=== PATIENT | female | born 1955 | race Asian ===

== ENCOUNTER 2016-12-14 | Emergency (ER) | payer OTHER | END 2016-12-14 12:35 | disposition home or self-care (01) ==

== ENCOUNTER 2017-07-01 14:19 | Emergency (ER) | payer OTHER ==
[2017-07-01] MEDS ORDERED: IBUPROFEN 800 MG TABLET PO STA (15:03)
[2017-07-01] MEDS ORDERED: DEXAMETHASONE 10 MG/ML VIAL PO STA (15:03)
--- NOTE | 2017-07-01 15:07 | ED Physician Documentation ---
PD HPI URI - Stated complaint Stated Complaint: SWELLING IN EYES - Chief complaint Chief Complaint: Heent - History obtained from History obtained from: Patient, Family - History of Present Illness Timing - onset: How many weeks ago (2) Timing duration: Weeks (2) Timing details: Gradual onset Pain level max: 8 Pain level now: 8 Associated symptoms: Nasal congestion, Sinus pain (L > R). No: Fever, Chills, Sore throat, Swollen nodes, Dry cough, Productive cough, Hemoptysis, Chest pain , Dyspnea Contributing factors: Sick contact. No: Travel, Immunocompromised, Unimmunized Improves by: Other (tried a netti pot without relief) Worsened by: Other (bending over) Similar symptoms before: Diagnosis (sinusitis) Recently seen: Not recently seen Review of Systems Constitutional: denies: Fever, Chills Nose: reports: Congestion, Sinus pressure / pain. denies: Rhinorrhea / runny nose, Epistaxis Throat: denies: Sore throat Cardiac: denies: Chest pain / pressure Respiratory: denies: Cough GI: denies: Nausea, Vomiting, Diarrhea Skin: denies: Rash Musculoskeletal: denies: Neck pain, Back pain Neurologic: denies: Headache PD PAST MEDICAL HISTORY - Past Medical History Past Medical History: Yes Cardiovascular: Hypertension, High cholesterol, Murmur - Past Surgical History Past Surgical History: No - Present Medications Home Medications: Ambulatory Orders Medication Instructions Recorded Confirmed Aspirin [Children's Aspirin] 81 mg PO DAILY 07/10/15 07/01/17 Atenolol 100 mg PO DAILY 07/10/15 07/01/17 Simvastatin [Zocor] 40 mg PO DAILY 07/10/15 07/01/17 Telmisartan [Micardis] 40 mg PO DAILY 07/10/15 07/01/17 Amox/Clav 875/125 [Augmentin] 1 each PO Q12H #20 tablet 07/01/17 Cetirizine HCl/Pseudoephedrine 1 each PO BID PRN #30 tab.er.12h 07/01/17 [Zyrtec-D Tablet] Mometasone Furoate [Nasonex] 1 spray NS DAILY PRN #1 spray.pump 07/01/17 - Allergies Allergies/Adverse Reactions: Allergies Allergy/AdvReac Type Severity Reaction Status Date / Time codeine Allergy Intermediate Hives Verified 07/01/17 14:27 - Social History Does the pt smoke?: No Smoking Status: Never smoker Does the pt drink ETOH?: No Does the pt have substance abuse?: No - Immunizations Immunizations are current?: Yes - POLST Patient has POLST: No PD ED PE NORMAL - Vitals Vital signs reviewed: Yes - General General: Alert and oriented X 3, No acute distress, Well developed/nourished - HEENT HEENT: PERRL, EOMI, Ears normal, Moist mucous membranes, Pharynx benign, Other ( TTP over the L maxillary sinus. nasal turbinate swelling B ) - Neck Neck: Supple, no meningeal sign, No adenopathy - Cardiac Cardiac: RRR, Strong equal pulses - Respiratory Respiratory: No respiratory distress, Clear bilaterally - Derm Derm: Warm and dry, No rash - Neuro Neuro: Alert and oriented X 3 - Psych Psych: Normal mood, Normal affect Results - Vitals Vitals: Vital Signs - 24 hr 07/01/17 07/01/17 14:24 15:26 Temperature 36.3 C L 36.7 C Heart Rate 63 57 L Respiratory 16 16 Rate Blood Pressure 138/79 H 124/84 H O2 Saturation 100 99 Oxygen O2 Source Room air PD MEDICAL DECISION MAKING - ED course Complexity details: reviewed old records, considered differential, d/w patient, d/w family ED course: Patient is a 61-year-old female who presents to the emergency department with what appears to be sinusitis. Will trial on decongestants and intranasal steroids and if this fails to improve, will start antibiotics. She is well- appearing, nontoxic. Afebrile. Patient counseled regarding signs and symptoms for which I believe and urgent re-evaluation would be necessary. Patient with good understanding of and agreement to plan and is comfortable going home at this time This document was made in part using voice recognition software. While efforts are made to proofread this document, sound alike and grammatical errors may occur. Departure - Departure Disposition: 01 Home, Self Care Clinical Impression: Sinusitis, acute maxillary Qualifiers: Recurrence: not specified as recurrent Qualified Code(s): J01.00 - Acute maxillary sinusitis, unspecified Condition: Good Instructions: ED Sinusitis Abx Tx Follow-Up: Simone Jacques PA-C [Primary Care Provider] - Within 1 week Prescriptions: Amox/Clav 875/125 [Augmentin] 1 each PO Q12H #20 tablet Mometasone Furoate [Nasonex] 1 spray NS DAILY PRN #1 spray.pump PRN Reason: Nasal Congestion Cetirizine HCl/Pseudoephedrine [Zyrtec-D Tablet] 1 each PO BID PRN #30 tab.er.12h PRN Reason: Nasal Congestion Comments: Return if you worsen. Wait 24 hours to start the antibiotics to see if you will improve without them. Discharge Date/Time: 07/01/17 15:26
[2017-07-01] MEDS ORDERED: DEXAMETHASONE 10 MG/ML VIAL ONE (15:21)
[2017-07-01] MEDS ORDERED: IBUPROFEN 800 MG TABLET PO ONE (15:22)
[2017-07-01] MEDS ORDERED: CHERRY SYRUP 10 ML UDC PO ONE (15:22)
[2017-07-01 15:27] VITALS: BP 124/84
== END 2017-07-01 15:26 | disposition home or self-care (01) ==
LOC: ED 14:19
DX: J01.00 Acute maxillary sinusitis, unspecified (principal); I10 Essential (primary) hypertension; Z79.82 Long term (current) use of aspirin
CPT/HCPCS: 99282; 99283; A9270

== ENCOUNTER 2017-11-07 15:35 | Emergency (ER) | payer OTHER ==
[2017-11-07 15:53] VITALS: BP 146/52
[2017-11-07] MEDS ORDERED: IBUPROFEN 600 MG TABLET PO STA (17:08)
--- NOTE | 2017-11-07 17:43 | ED Physician Documentation ---
PD MARIA ISABEL CORBIN - Stated complaint Stated Complaint: SINUS PRESSURE/COUGH - Chief complaint Chief Complaint: Resp - History obtained from History obtained from: Patient - History of Present Illness Timing - onset: How many weeks ago (2) Timing - duration: Weeks (2. Worse during the past 3 days.) Timing - details: Gradual onset Location: Sinuses Associated symptoms: Fever, Congestion, Cough Similar symptoms before: Diagnosis (Past history of sinusitis, most recently about 4 months ago.) - Treatment prior to arrival Treatment prior to arrival: aspirin - Additional information Additional information: The patient is a 62-year-old female who presents with cough, sinus congestion and sinus pain of 2 weeks duration. It has become worse over the past 3 days. She has had fever for which she takes aspirin. She denies shortness of breath, sore throat, or chest pain. She has a history of sinusitis, most recently diagnosed and treated about 4 months ago. Review of Systems Constitutional: reports: Fever, Chills Eyes: denies: Irritation Ears: denies: Ear pain Nose: reports: Congestion, Sinus pressure / pain Throat: denies: Sore throat Cardiac: denies: Chest pain / pressure Respiratory: reports: Cough. denies: Dyspnea GI: denies: Abdominal Pain, Nausea, Vomiting Skin: denies: Rash Musculoskeletal: denies: Neck pain Neurologic: reports: Headache PD PAST MEDICAL HISTORY - Past Medical History Past Medical History: Yes Cardiovascular: Hypertension, High cholesterol Endocrine/Autoimmune: None - Past Surgical History Past Surgical History: No - Present Medications Home Medications: Ambulatory Orders Medication Instructions Recorded Confirmed Aspirin [Children's Aspirin] 81 mg PO DAILY 07/10/15 11/07/17 Atenolol 100 mg PO DAILY 07/10/15 11/07/17 Simvastatin [Zocor] 40 mg PO DAILY 07/10/15 11/07/17 Telmisartan [Micardis] 40 mg PO DAILY 07/10/15 11/07/17 Amox/Clav 875/125 [Augmentin] 1 each PO Q12H #20 tablet 07/01/17 11/07/17 Cetirizine HCl/Pseudoephedrine 1 each PO BID PRN #30 tab.er.12h 07/01/17 [Zyrtec-D Tablet] Mometasone Furoate [Nasonex] 1 spray NS DAILY PRN #1 spray.pump 07/01/17 Amox/Clav 875/125 [Augmentin] 1 each PO Q12H #20 tablet 11/07/17 Benzonatate [Tessalon Perle] 100 mg PO BID #10 capsule 11/07/17 Mometasone Furoate [Nasonex] 17 gm NS DAILY #1 spray.pump 11/07/17 - Allergies Allergies/Adverse Reactions: Allergies Allergy/AdvReac Type Severity Reaction Status Date / Time codeine Allergy Intermediate Hives Verified 11/07/17 15:54 - Social History Does the pt smoke?: No Smoking Status: Never smoker Does the pt drink ETOH?: No Does the pt have substance abuse?: No - Immunizations Immunizations are current?: Yes - POLST Patient has POLST: No PD ED PE NORMAL - Vitals Vital signs reviewed: Yes (mild systolic hypertension.) - General General: Alert and oriented X 3, Well developed/nourished - HEENT HEENT: Atraumatic, EOMI, Ears normal, Moist mucous membranes, Pharynx benign, Other (Tenderness to percussion over the maxillary sinuses bilaterally.) - Neck Neck: Supple, no meningeal sign, Other (Mildly enlarged anterior cervical nodes bilaterally.) - Cardiac Cardiac: RRR, No murmur - Respiratory Respiratory: No respiratory distress, Clear bilaterally - Abdomen Abdomen: Soft, Non tender - Derm Derm: No rash - Neuro Neuro: Alert and oriented X 3, No motor deficit, Normal speech Results - Vitals Vitals: Oxygen O2 Source Room air - Labs Labs: Laboratory Tests 11/07/17 17:05 Influenza A (Rapid) Negative Influenza B (Rapid) Negative Influenza Types A,B Ag - PD MEDICAL DECISION MAKING - ED course Complexity details: reviewed old records, reviewed results, re-evaluated patient , considered differential, d/w patient, d/w family ED course: The patient's presentation is most consistent with recurrent sinusitis. Influenza swab is negative. Her presentation does not suggest meningitis or peritonsillar abscess. Treatment in the emergency department included administration of ibuprofen 600 mg orally. She is being discharged with prescriptions for Augmentin, Nasonex, and Tessalon Perles. I discussed with her and her the expected course of illness, antibiotic treatment and outpatient follow-up, as well as potentially worrisome signs or symptoms reevaluation in the emergency department. Departure - Departure Disposition: 01 Home, Self Care Clinical Impression: Sinusitis, acute maxillary Qualifiers: Recurrence: recurrent Qualified Code(s): J01.01 - Acute recurrent maxillary sinusitis Condition: Stable Instructions: ED Sinusitis Abx Tx Follow-Up: Sanchez Matta MD [Credentialed Staff Provider] - Prescriptions: Amox/Clav 875/125 [Augmentin] 1 each PO Q12H #20 tablet Benzonatate [Tessalon Perle] 100 mg PO BID #10 capsule Mometasone Furoate [Nasonex] 17 gm NS DAILY #1 spray.pump Comments: Take Augmentin twice daily as prescribed. You can use Nasonex decongestant as prescribed. You can use Tesselon as prescribed if needed for cough. You can use Tylenol or ibuprofen for fever or discomfort. Follow up with your primary physician within 2 weeks. Call to schedule appointment. Return to the emergency department if you develop increasing difficulty breathing, increasing headache, or otherwise worsening symptoms. Discharge Date/Time: 11/07/17 17:53
== END 2017-11-07 17:53 | disposition home or self-care (01) ==
LOC: ED 15:35
DX: J01.01 Acute recurrent maxillary sinusitis (principal); I10 Essential (primary) hypertension; E78.00 Pure hypercholesterolemia, unspecified; Z79.82 Long term (current) use of aspirin
CPT/HCPCS: 87275; 87276; 99283; A9270

== ENCOUNTER 2019-03-29 08:00 | Outpatient (CLI) | payer OTHER ==
[2019-03-29 13:44] LABS: BASOPHILS # (AUTO) 0.1 10^3/uL (0.0-0.1); BASOPHILS % (AUTO) 1.1 %; EOSINOPHILS # (AUTO) 0.9 10^3/uL (0.0-0.7); EOSINOPHILS % (AUTO) 13.4 %; HGB - HEMOGLOBIN 12.6 g/dL (12.0-16.0); LYMPHOCYTES # (AUTO) 1.9 10^3/uL (1.5-3.5); LYMPHOCYTES % (AUTO) 29.1 %; MEAN CORPUSCULAR HEMOGLOBIN 30.3 pg (27.0-31.0); MEAN CORPUSCULAR HGB CONC 32.4 g/dL (32.0-36.0); MEAN CORPUSCULAR VOLUME 93.6 fL (81.0-99.0); MEAN PLATELET VOLUME 8.1 fL (7.9-10.8); MONOCYTES # (AUTO) 0.5 10^3/uL (0.0-1.0); MONOCYTES % (AUTO) 7.9 %; NEUTROPHILS # (AUTO) 3.2 10^3/uL (1.5-6.6); NEUTROPHILS % (AUTO) 48.5 %; PLT - PLATELET COUNT 250 10^3/uL (130-450); RED BLOOD COUNT 4.16 10^6/uL (4.20-5.40); RED CELL DISTRIBUTION WIDTH 14.2 % (12.0-15.0); WHITE BLOOD COUNT 6.6 x10^3/uL (4.8-10.8)
[2019-03-29 14:07] LABS: BUN - BLOOD UREA NITROGEN 24 mg/dL (6-20); CALCIUM 9.4 mg/dL (8.5-10.3); CARBON DIOXIDE - CO2 25 mmol/L (21-32); CHLORIDE 105 mmol/L (101-111); CHOL/HDL RATIO 4.3 (<4.4); CHOLESTEROL 216 mg/dL; CREATININE 0.7 mg/dL (0.4-1.0); GFR - MDRD 85 (>89); GLUCOSE 107 mg/dL (70-100); HDL CHOLESTEROL 50 mg/dL; LDL CHOLESTEROL,CALCULATED 156 mg/dL; LDL/HDL RATIO 3.1 (<4.4); SODIUM 139 mmol/L (135-145); VLDL CHOLESTEROL 10 mg/dL
== END 2019-03-29 08:01 | disposition home or self-care (01) ==
LOC: LAB.N 08:00
PROVIDERS: ATTEND Physician Assistant Medical
DX: E78.5 Hyperlipidemia, unspecified (principal); I10 Essential (primary) hypertension
CPT/HCPCS: 36415; 80048; 80061; 83721; 85025

== ENCOUNTER 2020-03-20 07:00 | Outpatient (CLI) | payer OTHER ==
[2020-03-20 12:08] LABS: BASOPHILS # (AUTO) 0.1 10^3/uL (0.0-0.1); BASOPHILS % (AUTO) 0.6 %; EOSINOPHILS # (AUTO) 0.8 10^3/uL (0.0-0.7); EOSINOPHILS % (AUTO) 10.2 %; HGB - HEMOGLOBIN 13.9 g/dL (12.0-16.0); LYMPHOCYTES # (AUTO) 2.1 10^3/uL (1.5-3.5); LYMPHOCYTES % (AUTO) 27.4 %; MEAN CORPUSCULAR HGB CONC 32.4 g/dL (32.0-36.0); MEAN CORPUSCULAR VOLUME 95.5 fL (81.0-99.0); MEAN PLATELET VOLUME 9.3 fL (7.9-10.8); MONOCYTES # (AUTO) 0.6 10^3/uL (0.0-1.0); MONOCYTES % (AUTO) 8.1 %; NEUTROPHILS # (AUTO) 4.2 10^3/uL (1.5-6.6); NEUTROPHILS % (AUTO) 53.3 %; PLT - PLATELET COUNT 298 10^3/uL (130-450); RED BLOOD COUNT 4.49 10^6/uL (4.20-5.40); RED CELL DISTRIBUTION WIDTH 12.2 % (12.0-15.0); WHITE BLOOD COUNT 7.8 x10^3/uL (4.8-10.8)
[2020-03-20 12:32] LABS: ALBUMIN 4.1 g/dL (3.2-5.5); ALBUMIN/GLOBULIN RATIO 1.1 (1.0-2.2); ALKALINE PHOSPHATASE 142 IU/L (42-121); ALT ALANINE AMINOTRANSFERASE 41 IU/L (10-60); AST ASPARTATE AMINOTRANSFERASE 37 IU/L (10-42); BILIRUBIN,TOTAL 0.7 mg/dL (0.2-1.0); BUN - BLOOD UREA NITROGEN 15 mg/dL (6-20); CALCIUM 9.5 mg/dL (8.5-10.3); CARBON DIOXIDE - CO2 27 mmol/L (21-32); CHLORIDE 98 mmol/L (101-111); CHOL/HDL RATIO 5.7 (<4.4); CHOLESTEROL 261 mg/dL; CREATININE 0.8 mg/dL (0.4-1.0); GLUCOSE 100 mg/dL (70-100); HDL CHOLESTEROL 46 mg/dL; LDL CHOLESTEROL,CALCULATED 173 mg/dL; LDL/HDL RATIO 3.8 (<4.4); SODIUM 136 mmol/L (135-145); TOTAL PROTEIN 7.9 g/dL (6.7-8.2); VLDL CHOLESTEROL 42 mg/dL
== END 2020-03-20 23:59 | disposition home or self-care (01) ==
LOC: LAB.WCP 07:00
PROVIDERS: ATTEND Family Medicine
DX: J32.9 Chronic sinusitis, unspecified (principal); I10 Essential (primary) hypertension; E78.5 Hyperlipidemia, unspecified
CPT/HCPCS: 36415; 80050; 80061; 83721

== ENCOUNTER 2020-06-24 09:37 | Outpatient (CLI) | payer OTHER ==
--- NOTE | 2020-06-24 11:26 | XRAY Report ---
PROCEDURE: Lumbar Spine 2 View INDICATIONS: LUMBAGO WITH SCIATICA, LEFT SIDE TECHNIQUE: 2 views of the lumbar spine were acquired. COMPARISON: None. FINDINGS: Bones: 5 [id number] vertebrae are present. There is reversal of lumbar curvature. There is tra ce retrolisthesis of L2 on L3, L3 on L4, L5 on S1. Severe disc space narrowing with sclerotic reactiv e endplate changes are present at L4-5, moderate disc space narrowing is present throughout the remai chencho levels of the lumbar spine. There is severe foraminal narrowing at L4-5 and L5-S1. No acute vert ebral body compression fractures. No suspicious bony lesions. Soft tissues: Overlying bowel gas pattern is normal. No suspicious soft tissue calcifications. IMPRESSION: Multilevel degenerative changes most severe at L4-5 and L5-S1 as above. Reviewed by: Gisell Soto MD on 06/24/2020 11:24 AM PDT Approved by: Gisell Soto MD on 06/24/2020 11:24 AM PDT Station ID: [id number]
== END 2020-06-24 09:38 | disposition home or self-care (01) ==
LOC: DI 09:37
PROVIDERS: ATTEND Family Medicine
DX: M43.16 Spondylolisthesis, lumbar region (principal); M43.17 Spondylolisthesis, lumbosacral region; M51.36 Other intervertebral disc degeneration, lumbar region; M48.061 Spinal stenosis, lumbar region without neurogenic claudication; M48.07 Spinal stenosis, lumbosacral region; M47.816 Spondylosis without myelopathy or radiculopathy, lumbar region; M47.817 Spondylosis without myelopathy or radiculopathy, lumbosacral region
CPT/HCPCS: 72100

== ENCOUNTER 2020-12-07 18:18 | Emergency (ER) | payer MEDICARE, OTHER ==
[2020-12-07 18:45] LABS: BASOPHILS % (AUTO) 0.4 %; EOSINOPHILS # (AUTO) 0.2 10^3/uL (0.0-0.7); EOSINOPHILS % (AUTO) 2.1 %; HGB - HEMOGLOBIN 13.8 g/dL (12.0-16.0); LYMPHOCYTES # (AUTO) 2.7 10^3/uL (1.5-3.5); LYMPHOCYTES % (AUTO) 30.3 %; MEAN CORPUSCULAR HEMOGLOBIN 31.4 pg (27.0-31.0); MEAN CORPUSCULAR HGB CONC 33.2 g/dL (32.0-36.0); MEAN CORPUSCULAR VOLUME 94.8 fL (81.0-99.0); MEAN PLATELET VOLUME 8.7 fL (7.9-10.8); MONOCYTES # (AUTO) 0.7 10^3/uL (0.0-1.0); MONOCYTES % (AUTO) 7.3 %; NEUTROPHILS # (AUTO) 5.4 10^3/uL (1.5-6.6); NEUTROPHILS % (AUTO) 59.8 %; PLT - PLATELET COUNT 305 10^3/uL (130-450); RED BLOOD COUNT 4.39 10^6/uL (4.20-5.40); RED CELL DISTRIBUTION WIDTH 11.9 % (12.0-15.0); WHITE BLOOD COUNT 9.1 x10^3/uL (4.8-10.8)
[2020-12-07 18:58] LABS: ALBUMIN 4.3 g/dL (3.2-5.5); ALBUMIN/GLOBULIN RATIO 1.3 (1.0-2.2); BILIRUBIN,TOTAL 0.7 mg/dL (0.2-1.0); CALCIUM 9.8 mg/dL (8.5-10.3); CREATININE 0.9 mg/dL (0.4-1.0); TOTAL PROTEIN 7.7 g/dL (6.7-8.2)
[2020-12-07 19:07] LABS: BILIRUBIN,URINE NEGATIVE (NEGATIVE); GLUCOSE, URINE (UA) NEGATIVE (NEGATIVE); KETONES,URINE (UA) NEGATIVE (NEGATIVE); LEUKOCYTE ESTERASE, URINE MODERATE (NEGATIVE); NITRITE,URINE POSITIVE (NEGATIVE); OCCULT BLOOD,URINE SMALL (NEGATIVE); PROTEIN,URINE NEGATIVE (NEGATIVE); UROBILINOGEN,URINE 0.2 (NORMAL) E.U./dL (NORMAL)
[2020-12-07 19:10] LABS: CLARITY,URINE HAZY (CLEAR)
[2020-12-07 19:16] LABS: RBC,URINE 0-5 /HPF (0-5)
[2020-12-07 19:17] LABS: BACTERIA,URINE Many /HPF (None Seen); MUCUS,URINE Few Strands; SQUAMOUS EPITHELIAL CELL,UR RARE Squamous (<= Few)
[2020-12-07] MEDS ORDERED: SODIUM CHLORIDE 0.9% 1,000 ML IV STA (19:36)
--- NOTE | 2020-12-07 19:38 | ED Physician Documentation ---
History of Present Illness - Stated complaint Stated Complaint: DIZZY, NOT EATING - Chief complaint Chief Complaint: Neuro - History obtained from History obtained from: Patient - History of Present Illness Timing: How many days ago (3) - Additonal information Additional information: 65-year-old female with history of recurrent sinus infections has developed some dizziness and she states that the last time this happened was secondary to an ear infection. She does not have cough or congestion at all right now. She is complaining of the room spinning and dizziness when she stands up. Review of Systems Constitutional: reports: Chills. denies: Fever Ears: denies: Ear pain Nose: denies: Congestion Throat: denies: Sore throat Cardiac: denies: Chest pain / pressure, Palpitations Respiratory: denies: Dyspnea, Cough GI: denies: Abdominal Pain, Nausea, Vomiting : denies: Dysuria Skin: denies: Rash Musculoskeletal: denies: Neck pain, Back pain, Extremity pain Neurologic: reports: Other (dizziness). denies: Generalized weakness, Focal weakness, Numbness, Headache, Head injury, LOC PD PAST MEDICAL HISTORY - Past Medical History Cardiovascular: Hypertension, High cholesterol Endocrine/Autoimmune: None - Past Surgical History Past Surgical History: No - Present Medications Home Medications: Ambulatory Orders Medication Instructions Recorded Confirmed Aspirin [Children's Aspirin] 81 mg PO DAILY 07/10/15 12/07/20 Simvastatin [Zocor] 40 mg PO DAILY 07/10/15 12/07/20 Telmisartan [Micardis] 40 mg PO DAILY 07/10/15 12/07/20 atenoloL [Atenolol] 100 mg PO DAILY 07/10/15 12/07/20 Cetirizine HCl/Pseudoephedrine 1 each PO BID PRN #30 tab.er.12h 07/01/17 12/07/20 [Zyrtec-D Tablet] Mometasone Furoate [Nasonex] 1 spray NS DAILY PRN #1 spray.pump 07/01/17 12/07/20 Nitrofurantoin [Macrobid] 100 mg PO BID #14 cap 12/07/20 - Allergies Allergies/Adverse Reactions: Allergies Allergy/AdvReac Type Severity Reaction Status Date / Time codeine Allergy Intermediate Hives Verified 12/07/20 18:28 - Social History Does the pt smoke?: No Smoking Status: Never smoker Does the pt drink ETOH?: No Does the pt have substance abuse?: No - Immunizations Immunizations are current?: Yes - POLST Patient has POLST: No PD ED PE NORMAL - Vitals Vital signs reviewed: Yes (hypertensive ) - General General: Alert and oriented X 3, No acute distress, Well developed/nourished - HEENT HEENT: Atraumatic, PERRL, EOMI, Ears normal, Other (druy mucous membranes no nystagmus) - Neck Neck: Supple, no meningeal sign, No bony TTP - Cardiac Cardiac: RRR, No murmur - Respiratory Respiratory: No respiratory distress, Clear bilaterally - Abdomen Abdomen: Normal bowel sounds, Soft, Non tender, Non distended, No organomegaly - Back Back: No CVA TTP, No spinal TTP - Derm Derm: Normal color, Warm and dry, No rash - Neuro Neuro: Alert and oriented X 3, rubber 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, No motor deficit, No sensory deficit, Normal speech Eye Opening: Spontaneous Motor: Obeys Commands Verbal: Oriented GCS Score: 15 - Psych Psych: Normal mood, Normal affect Results - Vitals Vitals: Vital Signs - 24 hr 12/07/20 12/07/20 12/07/20 18:28 18:41 19:05 Temperature 37.0 C Heart Rate 70 62 62 Respiratory 19 17 23 Rate Blood Pressure 185/99 H 181/89 H 195/81 H O2 Saturation 100 100 100 12/07/20 12/07/20 12/07/20 19:15 19:31 19:45 Temperature Heart Rate 65 65 Respiratory 16 16 16 Rate Blood Pressure 195/81 H O2 Saturation 100 99 12/07/20 12/07/20 12/07/20 20:14 20:24 20:51 Temperature Heart Rate 75 Respiratory 16 15 15 Rate Blood Pressure 201/83 H 193/83 H O2 Saturation 99 12/07/20 20:59 Temperature Heart Rate Respiratory 15 Rate Blood Pressure O2 Saturation Oxygen O2 Source Room air - EKG (time done) 1830 Rate: Rate (enter#) (63) Rhythm: NSR QRS: LVH Compare to prior EKG: Unchanged from prior EKG (SPT 07-10-2015 no changes ) Computer interpretation: Agree with computer - Labs Labs: Laboratory Tests 12/07/20 12/07/20 12/07/20 18:41 18:41 18:41 WBC 9.1 RBC 4.39 Hgb 13.8 Hct 41.6 MCV 94.8 MCH 31.4 H MCHC 33.2 RDW 11.9 L Plt Count 305 MPV 8.7 Neut # (Auto) 5.4 Lymph # (Auto) 2.7 [place] # (Auto) 0.7 Eos # (Auto) 0.2 Baso # (Auto) 0.0 Absolute Nucleated RBC 0.00 Nucleated RBC % 0.0 Sodium 135 Potassium 3.7 Chloride 95 L Carbon Dioxide 29 Anion Gap 11.0 BUN 18 Creatinine 0.9 Estimated GFR (MDRD) 63 L Glucose 112 H Calcium 9.8 Total Bilirubin 0.7 AST 26 ALT 25 Alkaline Phosphatase 121 Troponin I High Sens 2.7 Total Protein 7.7 Albumin 4.3 Globulin 3.4 Albumin/Globulin Ratio 1.3 Lipase 29 Urine Color Urine Clarity Urine pH Ur Specific [place] Urine Protein Urine Glucose (UA) Urine Ketones Urine Occult Blood Urine Nitrite Urine Bilirubin Urine Urobilinogen Ur Leukocyte Esterase Urine RBC Urine WBC Ur Squamous Epith Cells Urine Bacteria Urine Mucus Ur Microscopic Review Urine Culture Comments 12/07/20 18:50 WBC RBC Hgb Hct MCV MCH MCHC RDW Plt Count MPV Neut # (Auto) Lymph # (Auto) [place] # (Auto) Eos # (Auto) Baso # (Auto) Absolute Nucleated RBC Nucleated RBC % Sodium Potassium Chloride Carbon Dioxide Anion Gap BUN Creatinine Estimated GFR (MDRD) Glucose Calcium Total Bilirubin AST ALT Alkaline Phosphatase Troponin I High Sens Total Protein Albumin Globulin Albumin/Globulin Ratio Lipase Urine Color YELLOW Urine Clarity HAZY Urine pH 6.0 Ur Specific [place] 1.010 Urine Protein NEGATIVE Urine Glucose (UA) NEGATIVE Urine Ketones NEGATIVE Urine Occult Blood SMALL H Urine Nitrite POSITIVE H Urine Bilirubin NEGATIVE Urine Urobilinogen 0.2 (NORMAL) Ur Leukocyte Esterase MODERATE H Urine RBC 0-5 Urine WBC >25 H Ur Squamous Epith Cells RARE Squamous Urine Bacteria Many H Urine Mucus Few Strands Ur Microscopic Review INDICATED Urine Culture Comments INDICATED - Rads (name of study) chest Radiology: Prelim report reviewed (Impression: No acute findings.), EMP read indepedently, See rad report Procedures - IVC sono (time) 1933 Bedside IVC sono: IVC measures (cm) (0.57), IVC collapsed c insp (cm) (complete), Significant dehydration (est 3 liter deficit) 2100 Bedside IVC sono: IVC measures (cm) (1.00), Dehydration (est 1.5 liter deficit after 1100ml in.) PD MEDICAL DECISION MAKING - ED course Complexity details: reviewed old records, reviewed results, re-evaluated patient, considered differential, d/w patient ED course: 65-year-old female comes to the emerge department complaining of dizziness and lightheadedness and she is found to be significantly dehydrated on interrogation the inferior vena cava. The amount of dehydration was on the order of 3 L and she received a liter of saline here felt much improved and wanted to go home. We rechecked her IVC at that point and it still represented a deficit of 1-1/2 L. She felt well, she is not vomiting, and she can orally hydrate. She was found to have urinary tract infection and she does not have symptoms. I believe with the patient's symptoms of dizziness and dehydration this is a reasonable thing to treat. She is administered a gram of Rocephin intravenously we will place her on some Macrobid. Departure - Departure Disposition: 01 Home, Self Care Clinical Impression: Dehydration Urinary tract infection Qualifiers: Urinary tract infection type: acute cystitis Hematuria presence: without hematuria Qualified Code(s): N30.00 - Acute cystitis without hematuria Condition: Stable Instructions: ED Dehydration, ED UTI Cystitis Female Follow-Up: William Sparrow MD [Primary Care Provider] - Prescriptions: Nitrofurantoin [Macrobid] 100 mg PO BID #14 cap Comments: Today we found that you were significantly dehydrated and we were able to provide 1 L of hydration to you and you will need additional fluids. My recommendation today is to go home and drink a quart of Gatorade in addition to your normal fluids and drink additional fluids tomorrow as well. The expectation is that your dizziness is much better and you have an uneventful course.
[2020-12-07] MEDS ORDERED: cefTRIAXone 1 GM in SODIUM CHLORIDE 0.9% MINIBAG 100 ML IV STA (20:14)
[2020-12-07] MEDS ORDERED: cefTRIAXone 1 GM VIAL ONE (20:30)
[2020-12-07 20:52] VITALS: BP 193/83
--- NOTE | 2020-12-08 10:57 | XRAY Report ---
PROCEDURE: Chest 1 View X-Ray INDICATIONS: Chest pain TECHNIQUE: One view of the chest was acquired. COMPARISON: None. FINDINGS: Surgical changes and devices: None. Lungs and pleura: No pleural effusions or pneumothorax. Lungs are clear. Mediastinum: Mediastinal contours appear normal. Heart size is normal. Bones and chest wall: No suspicious bony lesions. Overlying soft tissues appear unremarkable. IMPRESSION: No acute cardiopulmonary process demonstrated radiographically. Reviewed by: Fadi Carroll MD on 12/08/2020 10:56 AM [facility] Approved by: Fadi Carroll MD on 12/08/2020 10:56 AM [facility] Station ID: [id number]
== END 2020-12-07 21:05 | disposition home or self-care (01) ==
LOC: ED 18:18
DX: E86.0 Dehydration (principal); N30.00 Acute cystitis without hematuria; I10 Essential (primary) hypertension
CPT/HCPCS: 36415; 80053; 81001; 81003; 83690; 84484; 85025; 87077; 87086; 87181; 93005; 96365; 99283; 99284

== ENCOUNTER 2021-08-06 08:00 | Outpatient (CLI) | payer MEDICARE, OTHER ==
[2021-08-06 13:39] LABS: BASOPHILS % (AUTO) 0.8 %; EOSINOPHILS # (AUTO) 0.5 10^3/uL (0.0-0.7); EOSINOPHILS % (AUTO) 8.7 %; HCT - HEMATOCRIT 39.1 % (37.0-47.0); HGB - HEMOGLOBIN 12.7 g/dL (12.0-16.0); LYMPHOCYTES # (AUTO) 1.7 10^3/uL (1.5-3.5); LYMPHOCYTES % (AUTO) 33.1 %; MEAN CORPUSCULAR HEMOGLOBIN 31.8 pg (27.0-31.0); MEAN CORPUSCULAR HGB CONC 32.5 g/dL (32.0-36.0); MEAN PLATELET VOLUME 9.8 fL (7.9-10.8); MONOCYTES # (AUTO) 0.5 10^3/uL (0.0-1.0); NEUTROPHILS # (AUTO) 2.5 10^3/uL (1.5-6.6); NEUTROPHILS % (AUTO) 48.2 %; PLT - PLATELET COUNT 253 10^3/uL (130-450); RED BLOOD COUNT 3.99 10^6/uL (4.20-5.40); WHITE BLOOD COUNT 5.2 x10^3/uL (4.8-10.8)
[2021-08-06 14:01] LABS: THYROID STIMULATING HORMONE 1.72 uIU/mL (0.34-5.60)
[2021-08-06 14:06] LABS: ALBUMIN 4.5 g/dL (3.2-5.5); ALBUMIN/GLOBULIN RATIO 1.4 (1.0-2.2); ALKALINE PHOSPHATASE 102 IU/L (42-121); ALT ALANINE AMINOTRANSFERASE 30 IU/L (10-60); AST ASPARTATE AMINOTRANSFERASE 33 IU/L (10-42); BILIRUBIN,TOTAL 1.1 mg/dL (0.2-1.0); BUN - BLOOD UREA NITROGEN 22 mg/dL (6-20); CALCIUM 9.6 mg/dL (8.5-10.3); CARBON DIOXIDE - CO2 27 mmol/L (21-32); CHLORIDE 107 mmol/L (101-111); CHOL/HDL RATIO 4.2 (<4.4); CHOLESTEROL 232 mg/dL; CREATININE 0.6 mg/dL (0.4-1.0); GFR - MDRD 100 (>89); GLUCOSE 95 mg/dL (70-100); HDL CHOLESTEROL 55 mg/dL; LDL CHOLESTEROL,CALCULATED 164 mg/dL; POTASSIUM 3.3 mmol/L (3.5-5.0); SODIUM 143 mmol/L (135-145); TOTAL PROTEIN 7.8 g/dL (6.7-8.2); TRIGLYCERIDES 64 mg/dL; VLDL CHOLESTEROL 13 mg/dL
== END 2021-08-06 23:59 | disposition home or self-care (01) ==
LOC: LAB.WCP 08:00
PROVIDERS: ATTEND Family Medicine
DX: M51.37 Other intervertebral disc degeneration, lumbosacral region (principal); M51.36 Other intervertebral disc degeneration, lumbar region; E78.5 Hyperlipidemia, unspecified; I10 Essential (primary) hypertension
CPT/HCPCS: 36415; 80053; 80061; 83721; 84443; 85025

== ENCOUNTER 2022-01-07 09:25 | Outpatient (CLI) | payer MEDICARE, OTHER ==
--- NOTE | 2022-01-07 11:14 | DEXA Report ---
PROCEDURE: Dexa Spine and/or Hip INDICATIONS: OSTEOPOROSIS SCREENING TECHNIQUE: Dual energy x-ray absorptiometry (DXA) was performed on a [employer] System. Regions measur ed are the AP Spine, femoral neck, and if needed forearm. COMPARISON: None. FINDINGS: Lumbar Spine: Bone Mineral Density 0.875 g/cm/cm,T score -2.5, osteoporosis Left Hip: Bone Mineral Density 0.686 g/cm/cm,T score -2.6, osteoporosis Left Femoral Neck: Bone Mineral Density 0.639 g/cm/cm, T score -2.9, osteoporosis (T score greater or equal to -1.0: NORMAL) (T score from -1.1 to -2.4: OSTEOPENIA) (T score less than or equal to -2.5 to: OSTEOPOROSIS) Impression: Decreased bone mineral density within the osteoporotic range at the lumbar spine and left hip/femoral neck. Patients with diagnosis of osteoporosis or osteopenia should have regular bone mineral density assess ment. For those eligible for Medicare, routine testing is allowed once every 2 years. Testing frequ ency can be increased for patients who have rapidly progressing disease or for those who are receivin g medical therapy to restore bone mass. Reviewed by: Abhi Ryan MD on 01/07/2022 11:12 AM PDT Approved by: Abhi Ryan MD on 01/07/2022 11:12 AM PDT Station ID: [id number]
== END 2022-01-07 09:26 | disposition home or self-care (01) ==
LOC: DI 09:25
PROVIDERS: ATTEND Family Medicine
DX: Z13.820 Encounter for screening for osteoporosis (principal); M81.0 Age-related osteoporosis without current pathological fracture; Z78.0 Asymptomatic menopausal state

== ENCOUNTER 2022-12-09 08:03 | Outpatient (CLI) | payer MEDICARE, OTHER ==
[2022-12-09 12:47] LABS: BASOPHILS % (AUTO) 0.6 %; EOSINOPHILS # (AUTO) 0.6 10^3/uL (0.0-0.7); EOSINOPHILS % (AUTO) 8.8 %; HCT - HEMATOCRIT 41.8 % (37.0-47.0); HGB - HEMOGLOBIN 13.5 g/dL (12.0-16.0); LYMPHOCYTES # (AUTO) 1.8 10^3/uL (1.5-3.5); LYMPHOCYTES % (AUTO) 28.7 %; MEAN CORPUSCULAR HEMOGLOBIN 31.2 pg (27.0-31.0); MEAN CORPUSCULAR HGB CONC 32.3 g/dL (32.0-36.0); MEAN CORPUSCULAR VOLUME 96.5 fL (81.0-99.0); MEAN PLATELET VOLUME 9.2 fL (7.9-10.8); MONOCYTES # (AUTO) 0.6 10^3/uL (0.0-1.0); NEUTROPHILS # (AUTO) 3.3 10^3/uL (1.5-6.6); NEUTROPHILS % (AUTO) 52.7 %; PLT - PLATELET COUNT 267 10^3/uL (130-450); RED BLOOD COUNT 4.33 10^6/uL (4.20-5.40); RED CELL DISTRIBUTION WIDTH 12.5 % (12.0-15.0); WHITE BLOOD COUNT 6.3 x10^3/uL (4.8-10.8)
[2022-12-09 13:23] LABS: ALBUMIN 4.4 g/dL (3.2-5.5); ALBUMIN/GLOBULIN RATIO 1.3 (1.0-2.2); ALKALINE PHOSPHATASE 142 IU/L (42-121); ALT ALANINE AMINOTRANSFERASE 31 IU/L (10-60); AST ASPARTATE AMINOTRANSFERASE 34 IU/L (10-42); BUN - BLOOD UREA NITROGEN 16 mg/dL (6-20); CALCIUM 9.4 mg/dL (8.5-10.3); CARBON DIOXIDE - CO2 27 mmol/L (21-32); CHLORIDE 100 mmol/L (101-111); CHOL/HDL RATIO 4.5 (<4.4); CHOLESTEROL 224 mg/dL; CREATININE 0.7 mg/dL (0.4-1.0); GFR - MDRD 83 (>89); GLUCOSE 94 mg/dL (70-100); HDL CHOLESTEROL 50 mg/dL; LDL CHOLESTEROL,CALCULATED 156 mg/dL; LDL/HDL RATIO 3.1 (<4.4); POTASSIUM 3.5 mmol/L (3.5-5.0); SODIUM 136 mmol/L (135-145); TOTAL PROTEIN 7.9 g/dL (6.7-8.2); TRIGLYCERIDES 91 mg/dL; VLDL CHOLESTEROL 18 mg/dL
[2022-12-09 13:25] LABS: THYROID STIMULATING HORMONE 3.08 uIU/mL (0.34-5.60)
[2022-12-09 13:51] LABS: ESTIMATED AVERAGE GLUCOSE 123 mg/dL (70-100); HEMOGLOBIN A1c% 5.9 % (4.27-6.07)
== END 2022-12-09 08:04 | disposition home or self-care (01) ==
LOC: LAB.N 08:03
PROVIDERS: ATTEND Family Medicine
DX: I10 Essential (primary) hypertension (principal); E78.5 Hyperlipidemia, unspecified; E11.9 Type 2 diabetes mellitus without complications
CPT/HCPCS: 36415; 80053; 80061; 83036; 83721; 84443; 85025

== ENCOUNTER 2023-07-14 08:22 | Outpatient (CLI) | payer MEDICARE, OTHER ==
[2023-07-14 12:45] LABS: ESTIMATED AVERAGE GLUCOSE 120 mg/dL (70-100); HEMOGLOBIN A1c% 5.8 % (4.27-6.07)
[2023-07-14 12:49] LABS: CALCIUM 9.9 mg/dL (8.5-10.3); CREATININE 0.7 mg/dL (0.6-1.3); POTASSIUM 3.6 mmol/L (3.5-4.5)
== END 2023-07-14 08:23 | disposition home or self-care (01) ==
LOC: LAB.N 08:22
PROVIDERS: ATTEND Family Medicine
DX: I10 Essential (primary) hypertension (principal); R73.03 Prediabetes
CPT/HCPCS: 36415; 80048; 83036

== ENCOUNTER 2024-04-01 09:28 | Outpatient (CLI) | payer MEDICARE, OTHER ==
--- NOTE | 2024-04-01 10:21 | DEXA Report ---
PROCEDURE: Dexa Spine and/or Hip INDICATIONS: POST MENOPAUSAL TECHNIQUE: Dual energy x-ray absorptiometry (DXA) was performed on a [employer] System. Regions measur ed are the AP Spine, femoral neck, and if needed forearm. COMPARISON: 01/07/2022 FINDINGS: Lumbar Spine: Bone Mineral Density: 0.863 g/cm/cm,T score: -2.8. Since the most recent prior study, there has been a statistically significant decrease in bone mineral density by 3.3 percent. Left Femoral Neck: Bone Mineral Density: 0.673 g/cm/cm, T score: -2.6. Left Hip: Bone Mineral Density: 0.739 g/cm/cm,T score: -2.1. Since the most recent prior study, there has been a statistically significant increase in bone mineral density by 7.7 percent. (T score greater or equal to -1.0: NORMAL) (T score from -1.1 to -2.4: OSTEOPENIA) (T score less than or equal to -2.5 to: OSTEOPOROSIS) Impression: By WHO criteria, this patient has osteoporosis. Interval statistical decrease in bone mineral density of the lumbar spine. Interval statistical incre ase in bone mineral density of the hip. Patients with diagnosis of osteoporosis or osteopenia should have regular bone mineral density assess ment. For those eligible for Medicare, routine testing is allowed once every 2 years. Testing frequ ency can be increased for patients who have rapidly progressing disease or for those who are receivin g medical therapy to restore bone mass. Reviewed by: Babatunde Faye MD on 04/01/2024 10:19 AM PDT Approved by: Babatunde Faye MD on 04/01/2024 10:19 AM PDT Station ID: [id number]
== END 2024-04-01 09:29 | disposition home or self-care (01) ==
LOC: DI 09:28
PROVIDERS: ATTEND Family Medicine
DX: M81.0 Age-related osteoporosis without current pathological fracture (principal); Z78.0 Asymptomatic menopausal state